=== PATIENT | male | born 1970 | race Caucasian/White ===

== ENCOUNTER 2016-03-29 10:03 | Emergency (ER) | payer OTHER ==
--- NOTE | 2016-03-29 10:34 | ED Physician Documentation ---
General Adult - HISTORIAN Historian: patient - HPI Stated Complaint: rash Chief Complaint: General Adult Onset: days ago Timing: still present Severity: moderate Further Comments: yes (Pt is a 45 yo male with rash in groin and axilla. Pt has had this recurrent problem for years, but rash has become weepy in the past several days. No hx DM or other significant PMHx.) - ROS CONST: no problems EYES/ENT: none CVS/RESP: none GI/: none MS/SKIN/LYMPH: rash - PAST HX Past History: other (orthopedic surgery) Allergies/Adverse Reactions: Allergies Allergy/AdvReac Type Severity Reaction Status Date / Time Penicillins Allergy Hives Verified 03/29/16 11:22 Home Medications: Ambulatory Orders Medication Instructions Recorded NK [NK] 03/29/16 - SOCIAL HX Smoking History: non-smoker - FAMILY HX Family History: No - REVIEWED ASSESSMENTS Nursing Assessment Reviewed: Yes Vitals Reviewed: Yes Progress - Progress Progress: Acucheck glucose = 85 Rx Diflucan 150 mg. Take one now. Repeat in one week. Rx Lamisil AT (available over the counter). Apply to affected areas twice daily for 1 to 2 weeks. General Adult Physical Exam - PHYSICAL EXAM GENERAL APPEARANCE: mild distress EENT: eye inspection normal, ENT inspection normal NECK: normal inspection, supple RESPIRATORY: no resp distress, chest non-tender CVS: reg rate & rhythm BACK: normal inspection, no CVA tenderness SKIN: other (erthyematous rash in groin & axilla, c/w tinea) EXTREMITIES: non-tender, normal range of motion, no evidence of injury NEURO: oriented X3, motor nml, sensation nml Discharge Clincal Impression: rash, tinea Referrals: Burton Mckeon MD [Primary Care Provider] - Home Medications: Ambulatory Orders NK [NK] 03/29/16 Condition: Good Disposition: HOME, SELF-CARE Decision to Admit: NO Decision Time: 10:53
[2016-03-29 11:32] VITALS: BP 132/85
== END 2016-03-29 11:12 | disposition home or self-care (01) ==
LOC: ED 10:03
DX: R21 Rash and other nonspecific skin eruption (principal); B35.9 Dermatophytosis, unspecified
CPT/HCPCS: 99282